=== PATIENT | female | born 1990 | race African-American/Black ===

== ENCOUNTER → 2016-11-26 | Outpatient (CLI) | payer OTHER ==
[~2016-11-26] VITALS: Ht 170.2 cm; Wt 174.6 kg
[~2016-11-26] MED LIST: BACTRIM,SEPT1 TABLET PO; CELEXA40 MG PO; CITALOPRAM HBR20 MG PO; Colace PO; Feosol PO; GLUCOPHAGE500 MG PO; KEFLEX500 MG PO; Motrin PO; NAPROSYN500 MG PO; NATALCARE RX1 TABLET PO; NORCO 5/3251 TABLET PO; OMEPRAZOLE40 M1 PO; PERCOCET 5/31 TABLET PO; Percocet 5/325,Endoc PO; TORADOL10 MG PO; VITAMIN D2000 UNI1 PO; metformin
== END | disposition home or self-care (01) ==
LOC: AMB 08:11
PROC: 0DB68ZX Excision of Stomach, Via Natural or Artificial Opening Endoscopic, Diagnostic (ICD-10-PCS; principal; 2016-11-26)
DX: K29.50 Unspecified chronic gastritis without bleeding (principal); K21.9 Gastro-esophageal reflux disease without esophagitis; B96.81 Helicobacter pylori [H. pylori] as the cause of diseases classified elsewhere; E66.9 Obesity, unspecified; Z68.44 Body mass index [BMI] 60.0-69.9, adult; Z83.3 Family history of diabetes mellitus
CPT/HCPCS: 88305; 88342 TC; J2250

== ENCOUNTER → 2017-03-10 | Outpatient (CLI) | payer OTHER ==
[~2017-03-10] VITALS: Ht 170.2 cm; Wt 175.6 kg
== END | disposition home or self-care (01) ==
LOC: AMB 03-07 12:00
PROC: 0DB68ZX Excision of Stomach, Via Natural or Artificial Opening Endoscopic, Diagnostic (ICD-10-PCS; principal; 2017-03-10)
DX: K29.50 Unspecified chronic gastritis without bleeding (principal); B96.81 Helicobacter pylori [H. pylori] as the cause of diseases classified elsewhere
CPT/HCPCS: 88305; 88342 TC; J2250